=== PATIENT | female | born 1990 | race American Indian/Alaskan Native ===

== ENCOUNTER 2020-02-07 15:05 | Emergency (ER) | payer BC, OTHER ==
[2020-02-07 17:08] VITALS: BP 139/112
[2020-02-07] MEDS ORDERED: ONDANSETRON 4 MG ODT TAB PO ONE ×2 (18:13→23:49)
--- NOTE | 2020-02-07 18:13 | Event Note ---
ED Screening Note ED Screening Note: lower abd pain that began 2 days ago +n/v ate soup last no diarrhea no fever no blood in stool or vomit no known sick contacts just came back from [place] today no allergies to meds PMHx none non drinker +marijuana LNMP 3 days ago This initial assessment/diagnostic orders/clinical plan/treatment(s) is/are subject to change based on patients health status, clinical progression and re- assessment by fellow clinical providers in the ED. Further treatment and workup at subsequent clinical providers discretion. Patient/guardian urged not to elope from the ED as their condition may be serious if not clinically assessed and managed. Initial orders include: labs, UA zofran ODT
[2020-02-07 18:50] LABS: Hematocrit 39.3 % (30.3-42.9); Hemoglobin 13.4 gm/dl (10.1-14.3); Mean Corpuscular HGB Conc 34 % (30-34); Mean Corpuscular Volume 94 fl (79-97); Platelet Count 284 K/mm3 (140-440); Red Blood Count 4.18 M/mm3 (3.65-5.03); Red Cell Distribution Width 13.8 % (13.2-15.2)
[2020-02-07 19:08] LABS: Alanine Aminotransferase 17 units/L (7-56); Albumin 4.9 g/dL (3.9-5); Blood Urea Nitrogen 8 mg/dL (7-17); Calcium 10.2 mg/dL (8.4-10.2); Hemolysis Index 12
[2020-02-07 19:14] LABS: BUN/Creatinine Ratio 11
[2020-02-07 19:23] LABS: Total Cells Counted 100
[2020-02-07 19:24] LABS: Basophils % (Manual) 0 % (0.0-1.8); Eosinophils % (Manual) 0 % (0.0-4.3); RBC Morphology Normal
[2020-02-07 19:51] LABS: Bilirubin,Urine NEG (Negative); Blood,Urine LG (Negative); Color,Urine Yellow (Yellow); Mucus,Urine 2+ /HPF; Urobilinogen,Urine < 2.0 mg/dL (<2.0)
[2020-02-07] MEDS ORDERED: ONDANSETRON 4 MG ODT TAB ONE (23:31)
[2020-02-08] MEDS ORDERED: diphenhydrAMINE 50 MG/ML VIAL IV STA (00:57)
[2020-02-08] MEDS ORDERED: METOCLOPRAMIDE 10 MG/2 ML INJ IV STA (00:57)
[2020-02-08] MEDS ORDERED: SODIUM CHLORIDE 0.9% 1000 ML 1,000 ML IV ONE (00:57)
[2020-02-08] MEDS ORDERED: HYOSCYAMINE SUBL 0.125 MG TAB SL ONE (00:57)
[2020-02-08] MEDS ORDERED: PANTOPRAZOLE 40 MG INJ IV STA (00:58)
--- NOTE | 2020-02-08 01:00 | Emergency Department Report ---
<STERLING ALBRIGHT - Last Filed: 02/08/20 00:59> ED Abdominal Pain HPI - General Chief Complaint: Abdominal Pain Stated Complaint: LOWER ABD PAIN Time Seen by Provider: 02/07/20 18:11 Source: patient Mode of arrival: Ambulatory Limitations: No Limitations - History of Present Illness MD Complaint: abdominal pain -: days(s) (2-3) Radiation: epigastric Migration to: other (mid abdomen) Severity: mild, moderate Quality: cramping, aching - Related Data Previous Rx's Medication Instructions Recorded Last Taken Type Famotidine [Pepcid] 40 mg PO QHS #14 tablet 02/08/20 Unknown Rx Hyoscyamine Subl [Levsin Sl 0.125 0.125 mg SL Q4HR PRN #15 tablet 02/08/20 Unknown Rx TAB] Ondansetron [Zofran Odt] 4 mg PO Q8HR PRN #15 tab.rapdis 02/08/20 Unknown Rx Allergies Allergy/AdvReac Type Severity Reaction Status Date / Time No Known Allergies Allergy Unverified 02/07/20 17:05 ED Review of Systems Comment: All other systems reviewed and negative ED Past Medical Hx - Past Medical History Previous Medical History?: No - Surgical History Past Surgical History?: No - Medications Home Medications: Home Medications Medication Instructions Recorded Confirmed Last Taken Type Famotidine [Pepcid] 40 mg PO QHS #14 tablet 02/08/20 Unknown Rx Hyoscyamine Subl [Levsin Sl 0.125 0.125 mg SL Q4HR PRN #15 tablet 02/08/20 U nknown Rx TAB] Ondansetron [Zofran Odt] 4 mg PO Q8HR PRN #15 tab.rapdis 02/08/20 Unknown Rx ED Physical Exam - General Limitations: No Limitations General appearance: alert, in no apparent distress - Head Head exam: Present: atraumatic, normocephalic - Eye Eye exam: Present: normal appearance - ENT ENT exam: Present: mucous membranes moist - Neck Neck exam: Present: normal inspection - Respiratory Respiratory exam: Present: normal lung sounds bilaterally. Absent: respiratory distress - Cardiovascular Cardiovascular Exam: Present: regular rate, normal rhythm. Absent: systolic murmur, diastolic murmur, rubs, gallop - GI/Abdominal GI/Abdominal exam: Present: soft, tenderness (epigastric), normal bowel sounds, hyperactive bowel sounds. Absent: guarding, rebound, mass, pulsatile mass, hernia - Extremities Exam Extremities exam: Present: normal inspection - Back Exam Back exam: Present: normal inspection - Neurological Exam Neurological exam: Present: alert, oriented X3 - Psychiatric Psychiatric exam: Present: normal affect, normal mood - Skin Skin exam: Present: warm, dry, intact, normal color. Absent: rash ED Medical Decision Making - Lab Data Result diagrams: 02/07/20 18:23 02/07/20 18:23 ED Disposition Clinical Impression: Epigastric pain, Gastritis Disposition: DC- TO HOME OR SELFCARE Condition: Stable Instructions: Abdominal Pain (ED), Gastritis, Adult, Abdominal Pain, Adult, [id number] Additional Instructions: Take the Zofran, Levsin, and Pepcid as prescribed. I recommend that you follow- up with a GI specialist given on your discharge instructions. Return to the ER if your symptoms changes or worsens in any way. Prescriptions: Famotidine [Pepcid] 40 mg PO QHS #14 tablet Hyoscyamine Subl [Levsin Sl 0.125 TAB] 0.125 mg SL Q4HR PRN #15 tablet PRN Reason: Spasms Ondansetron [Zofran Odt] 4 mg PO Q8HR PRN #15 tab.rapdis PRN Reason: Nausea Referrals: [facility] [Provider Group] - 3-5 Days ISABEL BENTLEY MD [Staff Physician] - 3-5 Days Forms: Work/School Release Form(ED) <LASHON XIONG - Last Filed: 02/08/20 09:21> ED Review of Systems ROS: Stated complaint: LOWER ABD PAIN Other details as noted in HPI ED Course Vital Signs 02/07/20 17:06 Temperature 98.3 F Pulse Rate 78 Respiratory 20 Rate Blood Pressure 139/112 [Right] O2 Sat by Pulse 100 Oximetry ED Medical Decision Making - Lab Data Result diagrams: 02/07/20 18:23 02/07/20 18:23 - Medical Decision Making 0738 -- Case turned over to me from [place]; H&P discussed. Labs reviewed and discussed. CT abdomen and pelvis pending - Can dispo to home with zofran and levsin if normal. 0916 -- CT abdomen pelvis reviewed nothing acute on CT. Patient currently resting comfortably. Abdominal exam shows soft nontender abdomen. She is not toxic appearing, not ill-appearing, and appears hydrated. Vital signs have been stable. Discussed CT results and lab results with patient. At this time nothing acute on testing that requires any admission, or emergent consult. Patient will be given referral to GI specialist for follow-up if her symptoms continue. Patient expressed understanding of instructions and agree with plan. Patient was stable at time of discharge. Critical care attestation.: If time is entered above; I have spent that time in minutes in the direct care of this critically ill patient, excluding procedure time. ED Disposition Is pt being admited?: No Does the pt Need Aspirin: No Time of Disposition: 09:19
[2020-02-08] MEDS ORDERED: KETOROLAC 30 MG/1 ML INJ IV STA (02:57)
[2020-02-08] MEDS ORDERED: FAMOTIDINE 20 MG TAB PO ONE (09:46)
[2020-02-08] MEDS ORDERED: KETOROLAC 60 MG/2 ML INJ IM ONE (09:46)
[2020-02-08] MEDS ORDERED: KETOROLAC 60 MG/2 ML INJ ONE (09:47)
[2020-02-08] MEDS ORDERED: FAMOTIDINE 20 MG TAB ONE (09:47)
[2020-02-08] MEDS ORDERED: MORPHINE 2 MG/1 ML INJ IM ONE (10:07)
== END 2020-02-08 11:44 | disposition home or self-care (01) ==
LOC: EDSEX → ED 15:05
DX: K29.70 Gastritis, unspecified, without bleeding (principal); R10.13 Epigastric pain; Z79.899 Other long term (current) drug therapy
CPT/HCPCS: 36415; 74177; 80053; 81001; 83690; 84703; 85007; 85025; 93005; 96361; 96372; 96374; 96375; 99284; C9113; J1200; J1885; J2270; J2765; J7030; Q9967; Q0162